=== PATIENT | female | born 1955 | race Caucasian/White ===

== ENCOUNTER 2017-09-22 14:22 | Outpatient (CLI) | payer OTHER, BC ==
[2017-09-22 15:22] LABS: Hemoglobin 13.7 g/dL (12.0-16.0); Mean Corpuscular Hemoglobin 32.3 pg (27.0-31.0); Mean Platelet Volume 7.7 fL (7.4-10.4); Platelet Count 241 thou/uL (130-400); RBC Distribution Width 11.5 % (11.5-14.5); Red Blood Cell (RBC) Count 4.25 mill/uL (4.20-5.40); White Blood Cell (WBC) Count 9.7 thou/uL (4.8-10.8)
[2017-09-22 15:39] LABS: Anion Gap 13 mmol/L (10-20); BUN (Urea Nitrogen) 24 mg/dL (9.8-20.1); Calc. Creatinine Clearance 0 mL/min (70-130); Calcium 9.9 mg/dL (7.8-10.44); Carbon Dioxide 24 mmol/L (23-31); Chloride 103 mmol/L (98-107); Estimated GFR-MDRD 65; Glucose 86 mg/dL (80-115); Potassium 4.3 mmol/L (3.5-5.1); Sodium 136 mmol/L (136-145)
== END 2017-09-22 14:23 | disposition home or self-care (01) ==
LOC: LABBT 14:22
PROVIDERS: ATTEND Neurological Surgery
DX: Z01.818 Encounter for other preprocedural examination (principal); M47.892 Other spondylosis, cervical region
CPT/HCPCS: 80048; 85027; 93005; 93010

== ENCOUNTER 2017-09-28 06:50 | Day surgery (SDC) | payer OTHER, BC ==
[2017-09-22 14:26] VITALS: BMI 27.4
[2017-09-28] MEDS ORDERED: Gelfilm 1 EA Packet ONE (06:59)
[2017-09-28] MEDS ORDERED: Sodium Chloride 0.9% 10 ML ONE (06:59)
[2017-09-28] MEDS ORDERED: CEFAZOLIN/Water 2 GM/20 ML SYRINGE ONE (07:28)
[2017-09-28] MEDS ORDERED: Midazolam HCl 2 mg/2 ml Vial ONE ×2 (07:53→08:02)
[2017-09-28] MEDS ORDERED: Fentanyl 100 MCG/2 ML VIAL ONE ×2 (08:02→09:27)
[2017-09-28] MEDS ORDERED: PROPOFOL 200 MG/20 ML VIAL ONE (09:31)
[2017-09-28] MEDS ORDERED: Glycopyrrolate 0.2 MG/ML 5 ML SYRINGE ONE (09:31)
[2017-09-28] MEDS ORDERED: ePHEDrine/0.9% NaCl/PF SYRINGE 50 mg/10 ml ONE (09:31)
[2017-09-28] MEDS ORDERED: Dexamethasone 20 MG/5 ML VIAL ONE (09:31)
[2017-09-28] MEDS ORDERED: Lidocaine 1% PF 5 ML VIAL ONE (09:31)
[2017-09-28] MEDS ORDERED: Ondansetron HCl/PF 4 MG/2 ML Vial ONE (09:31)
--- NOTE | 2017-09-28 09:47 | OP ---
DATE OF PROCEDURE: 09/28/2017 SURGEON: Gurmeet Watson M.D. HOSPITAL SECRETARY: Scott Corrales PA-C PROCEDURE: Anterior cervical discectomy C5-6, interbody arthrodesis, intravertebral biomechanical de vice, local morselized autograft, demineralized bone matrix, anterior titanium instrumentation C5-6. PROCEDURE IN DETAIL: The patient was brought to the operating room and intubated. She was positione d supine with the head in modest extension on a gel-filled donut. Incision was made in the right pre cervical area and dissecting medial to the sternocleidomastoid muscle, identified the anterior cervic al spine and our level was confirmed by x-ray. We debrided anterior osteophytes, placed distraction across the disc spaces and completely removed the intravertebral disc decompressing the neural elemen ts. The bony endplates were then decorticated for the purpose of arthrodesis and appropriately sized intravertebral biomechanical PEEK device was brought into the field, filled with demineralized bone matrix, local morselized autograft, and tapped into place securely at C5-6. Next, an anterior plate was brought in the field and secured to C5, and C6 using two 14 mm screws at each level. The wound w as then extensively irrigated, immaculate hemostasis was secured, and the wound was closed in anatomi c layers.
[2017-09-28] MEDS ORDERED: HYDROcodone/Acetaminophen 5/325 mg Tablet ONE (10:49)
== END 2017-09-28 12:12 | disposition home or self-care (01) ==
LOC: SDC 06:50
PROVIDERS: ATTEND Neurological Surgery
PROC: 0RG1070 Fusion of Cervical Vertebral Joint with Autologous Tissue Substitute, Anterior Approach, Anterior Column, Open Approach (ICD-10-PCS; principal; 2017-09-28)
PROC: 0RG10J0 Fusion of Cervical Vertebral Joint with Synthetic Substitute, Anterior Approach, Anterior Column, Open Approach (ICD-10-PCS; principal; 2017-09-28)
PROC: 0RG10A0 Fusion of Cervical Vertebral Joint with Interbody Fusion Device, Anterior Approach, Anterior Column, Open Approach (ICD-10-PCS; principal; 2017-09-28)
PROC: 0RB30ZZ Excision of Cervical Vertebral Disc, Open Approach (ICD-10-PCS; principal; 2017-09-28)
DX: M47.812 Spondylosis without myelopathy or radiculopathy, cervical region (principal); E03.9 Hypothyroidism, unspecified; E78.5 Hyperlipidemia, unspecified; Z79.899 Other long term (current) drug therapy
CPT/HCPCS: 76001; 96374; A4216; C1713; C1776; J1100; J2001; J2250; J2405; J2704; J3010; J3490

== ENCOUNTER 2017-10-14 10:33 | Outpatient (CLI) | payer OTHER, BC ==
--- NOTE | 2017-10-14 12:05 | RAD ---
CERVICAL SPINE 3 VIEWS: Date: 10/14/17 HISTORY: Neck pain. Follow-up surgery. COMPARISON: None. FINDINGS: There is an anterior fusion plate with transvertebral body screw at C5-C6. No perihardware lucency. T here is a disc prosthesis at C5-C6. Prosthesis at the anterior aspect of C5 and C6. Vertebral body he ights are maintained. No definite fracture. No prevertebral soft tissue swelling. Predental space is normal. Limited evaluation of the odontoid process in the open-mouth projection. Lateral masses of C1 and C2 articulate appropriately. On the AP projection, mild degenerative changes of the facets. IMPRESSION: Cervical fusion hardware as above. Disc prosthesis is slightly anterior to the anterior inferior jovanni in of C5. POS: [facility]
== END 2017-10-14 10:34 | disposition home or self-care (01) ==
LOC: TBSIIMAG 10:33
PROVIDERS: ATTEND Physician Assistant
DX: M54.2 Cervicalgia (principal); Z98.1 Arthrodesis status
CPT/HCPCS: 72040